=== PATIENT | male | born 2000 | race Native Hawaiian/Other Pacific Islander ===

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

== ENCOUNTER 2024-10-25 21:51 | Emergency (ER) | payer OTHER ==
[2024-10-25 21:56] VITALS: RESP 18; TEMP 98.2
[2024-10-25] MEDS: IBUPROFEN 400 MG TAB PO STA (22:31)
--- NOTE | 2024-10-25 23:23 | ED ---
General Adult HPI - General Chief complaint: Extremity Injury, Lower Stated complaint: Fall Time Seen by Provider: 10/25/24 22:00 Source: patient Mode of arrival: wheelchair - History of Present Illness Initial comments: 23-year-old male presenting with chief complaint of right knee pain. Patient had a slip and fall at work today. He has a small bruise over his kneecap. This is where the majority of the pain is. He is still has full range of motion but states that it is painful to move the knee. There is some mild swelling. No numbness or tingling. - Related Data Home Medications Medication Instructions Recorded Confirmed ARIPiprazole [Abilify] 2 mg PO HS 08/06/19 08/09/19 Sertraline [Zoloft] 50 mg PO HS 08/06/19 08/09/19 Allergies Allergy/AdvReac Type Severity Reaction Status Date / Time No Known Allergies Allergy Verified 10/25/24 21:56 Review of Systems ROS Statement: Those systems with pertinent positive or pertinent negative responses have been documented in the HPI. ROS Other: All systems not noted in ROS Statement are negative. 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 Absent: meningismus Respiratory exam: Absent: respiratory distress Cardiovascular Exam: Present: regular rate Right Knee exam: Present: full ROM, tenderness, swelling, ecchymosis Neurological exam: Present: alert, oriented X3 Psychiatric exam: Present: normal affect, normal mood Skin exam: Present: warm, dry Course Vital Signs 10/25/24 10/25/24 21:53 23:39 Temperature 98.2 F Pulse Rate 72 68 Respiratory 18 18 Rate Blood Pressure 121/72 126/70 O2 Sat by Pulse 98 99 Oximetry Medical Decision Making - Medical Decision Making Was pt. sent in by a medical professional or institution (, PA, DUCT LAYER SUPERVISOR, urgent care, hospital, or snf...) When possible be specific @ -No Did you speak to anyone other than the patient for history (EMS, parent, family, police, friend...)? What history was obtained from this source @ -Caregiver Did you review nursing and triage notes (agree or disagree)? Why? @ -I reviewed and agree with nursing and triage notes Were old charts reviewed (outside hosp., previous admission, EMS record, old EKG, old radiological studies, urgent care reports/EKG's, snf records)? Report findings @ -No old charts were reviewed Differential Diagnosis (chest pain, altered mental status, abdominal pain women, abdominal pain men, vaginal bleeding, weakness, fever, dyspnea, syncope, headache, dizziness, GI bleed, back pain, seizure, CVA, palpatations, mental health, musculoskeletal)? @ -Differential Musculoskeletal Muscular strain, contusion, ligament sprain, fracture, arthritis, septic arthritis, bursitis, cellulitis, muscle spasm, nerve compression, DVT, arterial occlusion, herpes zoster, electrolyte abnormality, tumor.... This is not meant to be in all inclusive list EKG interpreted by me (3pts min.). @ -As above X-rays interpreted by me (1pt min.). @ -X-ray shows anterior soft tissue swelling. No acute fracture or dislocation. CT interpreted by me (1pt min.). @ -None done U/S interpreted by me (1pt. min.). @ -None done What testing was considered but not performed or refused? (CT, X-rays, U/S, labs)? Why? @ -None What meds were considered but not given or refused? Why? @ -None Did you discuss the management of the patient with other professionals (professionals i.e. , PA, DUCT LAYER SUPERVISOR, lab, RT, psych nurse, director social welfare, community outreach director, teacher, banking officer, shoe parts caser)? Give summary @ -No Was smoking cessation discussed for >3mins.? @ -No Was critical care preformed (if so, how long)? @ -No Were there social determinants of health that impacted care today? How? (Homelessness, low income, unemployed, alcoholism, drug addiction, transportation, low edu. Level, literacy, decrease access to med. care, retirement, rehab)? @ -No Was there de-escalation of care discussed even if they declined (Discuss DNR or withdrawal of care, Hospice)? DNR status @ -No What co-morbidities impacted this encounter? (DM, HTN, Smoking, COPD, CAD, Cancer, CVA, ARF, Chemo, Hep., AIDS, mental health diagnosis, sleep apnea, morbid obesity)? @ -None Was patient admitted / discharged? Hospital course, mention meds given and route, prescriptions, significant lab abnormalities, going to OR and other pertinent info. @ -23-year-old male presenting with chief complaint of right knee injury after a fall at work today. He has some bruising and mild swelling. He has full range of motion. X-rays negative for fracture or dislocation. Patient and caregiver educated on today's findings and supportive management. Follow-up with PCP. Report back to ER with any new or worsening symptoms. Discussed return parameters and answered all questions. Patient and caregiver conveyed verbal understanding and agreed to the plan. I discussed this case in detail with my attending Dr. Hong Undiagnosed new problem with uncertain prognosis? @ -No Drug Therapy requiring intensive monitoring for toxicity (Heparin, Nitro, Insulin, Cardizem)? @ -No Were any procedures done? @ -No Diagnosis/symptom? @ -Knee injury Acute, or Chronic, or Acute on Chronic? @ -Acute Uncomplicated (without systemic symptoms) or Complicated (systemic symptoms)? @ -Uncomplicated Side effects of treatment? @ -No Exacerbation, Progression, or Severe Exacerbation? @ -No Poses a threat to life or bodily function? How? (Chest pain, [place], [place], pneumonia, PE, COPD, DKA, ARF, appy, cholecystitis, CVA, Diverticulitis, Homicidal, Suicidal, threat to staff... and all critical care pts) @ -Low likelihood Disposition Clinical Impression: Knee injury Disposition: HOME SELF-CARE Condition: Good Instructions (If sedation given, give patient instructions): Knee Pain (ED) Additional Instructions: Follow-up with PCP, suggestions provided. Report back to ER with any new or worsening symptoms. Take Motrin and Tylenol as needed for pain control. Rest, ice, compress, elevate the knee to help with pain and swelling. Is patient prescribed a controlled substance at d/c from ED?: No Referrals: None,Stated [Primary Care Provider] - 1-2 days Forms: Area PCPs Time of Disposition: 23:23
[2024-10-25 23:41] VITALS: BP 126/70; PULSE 68
--- NOTE | 2024-10-25 23:53 | XR ---
EXAM: XR Right Knee, 3 Views CLINICAL HISTORY: ITS.REASON XR Reason: pain,injury TECHNIQUE: Three views of the right knee. COMPARISON: No previous studies. FINDINGS: Bones/joints: Unremarkable. Normal anatomic alignment. No acute fracture, dislocation, or destructive process. Soft tissues: Soft tissue swelling noted anteriorly. IMPRESSION: 1. Anterior soft tissue swelling. 2. No acute fracture or dislocation. 3. MRI imaging may provide additional information as deemed necessary.
== END 2024-10-25 23:41 | disposition home or self-care (01) ==
LOC: EEVIPCON 21:51 → EC 21:51
DX: S80.01XA Contusion of right knee, initial encounter (principal); W01.0XXA Fall on same level from slipping, tripping and stumbling without subsequent striking against object, initial encounter; Y99.0 Civilian activity done for income or pay
CPT/HCPCS: 99283

== ENCOUNTER 2024-12-21 16:16 | Emergency (ER) | payer OTHER ==
[2024-12-21 16:43] VITALS: BP 106/68; PULSE 65; RESP 18; TEMP 98.3
--- NOTE | 2024-12-21 17:05 | ED ---
ENT HPI - General Chief complaint: Dental/Oral Stated complaint: facial infection Time Seen by Provider: 12/21/24 16:27 Source: patient, RN notes reviewed Mode of arrival: ambulatory Limitations: no limitations - History of Present Illness Initial comments: This is a 24-year-old male with history of hydrocephaly presenting with facial edema and pain x 2 days. Patient states he began having swelling of his upper lip with associated pain. Endorses history of poor dental care. Denies use of any new prescription medication, difficulty breathing or airway swelling. Endorses use of Motrin with minimal relief. Denies fever, chills, nasal congestion, sore throat, cough, chest pain, dyspnea, abdominal pain, N/V/D. MD complaint: tooth pain Onset/Timin -: days(s) Location: tooth # 1 - TTP, periapical abscess Severity: severe Consistency: constant Worsens with: eating Context- Dental: poor dental care Associated Symptoms: gum swelling, toothache - Related Data Home Medications Medication Instructions Recorded Confirmed ARIPiprazole [Abilify] 2 mg PO HS 08/06/19 08/09/19 Sertraline [Zoloft] 50 mg PO HS 08/06/19 08/09/19 Previous Rx's Medication Instructions Recorded Amoxic-Pot Clav 875-125Mg 1 tab PO Q12HR #20 tab 12/21/24 [Augmentin 875-125] Allergies Allergy/AdvReac Type Severity Reaction Status Date / Time No Known Allergies Allergy Verified 10/25/24 21:56 Review of Systems ROS Statement: Those systems with pertinent positive or pertinent negative responses have been documented in the HPI. ROS Other: All systems not noted in ROS Statement are negative. 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 Absent: scleral icterus, conjunctival injection, periorbital swelling ENT exam: Present: mucous membranes dry, other (Significant edema of upper lip and associated right side TTP near frontal incisor. Negative overlying erythema, discharge, open wound. Small. No abscess with associated tenderness noted superiorly to right frontal incisor along gingiva.) Neck exam: Present: normal inspection. Absent: tenderness, meningismus, lymphadenopathy Respiratory exam: Present: normal lung sounds bilaterally. Absent: respiratory distress, wheezes, rales, rhonchi, stridor Cardiovascular Exam: Present: regular rate, normal rhythm, normal heart sounds. Absent: systolic murmur, diastolic murmur, rubs, gallop, clicks GI/Abdominal exam: Present: soft, normal bowel sounds. Absent: distended, tenderness, guarding, rebound, rigid Extremities exam: Present: normal inspection, full ROM, normal capillary refill. Absent: tenderness, pedal edema, joint swelling, calf tenderness Back exam: Present: normal inspection Neurological exam: Present: alert, oriented X3, CN II-XII intact Psychiatric exam: Present: normal affect, normal mood Skin exam: Present: warm, dry, intact, normal color. Absent: rash Course Vital Signs 12/21/24 16:40 Temperature 98.3 F Pulse Rate 65 Respiratory 18 Rate Blood Pressure 106/68 O2 Sat by Pulse 98 Oximetry Medical Decision Making - Medical Decision Making Was pt. sent in by a medical professional or institution (, [facility], HOME PARAPROFESSIONAL, urgent care, hospital, or chcf...) When possible be specific @ -No Did you speak to anyone other than the patient for history (EMS, parent, family, police, friend...)? What history was obtained from this source @ -No Did you review nursing and triage notes (agree or disagree)? Why? @ -I reviewed and agree with nursing and triage notes Were old charts reviewed (outside hosp., previous admission, EMS record, old EKG, old radiological studies, urgent care reports/EKG's, chcf records)? Report findings @ -No old charts were reviewed Differential Diagnosis (chest pain, altered mental status, abdominal pain women, abdominal pain men, vaginal bleeding, weakness, fever, dyspnea, syncope, headache, dizziness, GI bleed, back pain, seizure, CVA, palpatations, mental health, musculoskeletal)? @ -Periapical abscess, ANUG, dental carry, angioedema, gingivitis, cellulitis, sinusitis, this is not an exhaustive list EKG interpreted by me (3pts min.). @ -Not done X-rays interpreted by me (1pt min.). @ -None done CT interpreted by me (1pt min.). @ -None done U/S interpreted by me (1pt. min.). @ -None done What testing was considered but not performed or refused? (CT, X-rays, U/S, labs)? Why? @ -None What meds were considered but not given or refused? Why? @ -Patient declined all pain medication offered including Toradol, Motrin and supraperiosteal dental block. Patient also declined needle aspiration or I&D of periapical abscess Did you discuss the management of the patient with other professionals (professionals i.e. , PA, HOME PARAPROFESSIONAL, lab, RT, psych nurse, social media marketing manager, industrial controls technician, teacher, state wildlife officer, disease case manager rn)? Give summary @ -No Was smoking cessation discussed for >3mins.? @ -No Was critical care preformed (if so, how long)? @ -No Were there social determinants of health that impacted care today? How? (Homele ssness, low income, unemployed, alcoholism, drug addiction, transportation, low edu. Level, literacy, decrease access to med. care, chcf, rehab)? @ -No Was there de-escalation of care discussed even if they declined (Discuss DNR or withdrawal of care, Hospice)? DNR status @ -No What co-morbidities impacted this encounter? (DM, HTN, Smoking, COPD, CAD, Cancer, CVA, ARF, Chemo, Hep., AIDS, mental health diagnosis, sleep apnea, morbid obesity)? @ -None Was patient admitted / discharged? Hospital course, mention meds given and route, prescriptions, significant lab abnormalities, going to OR and other pertinent info. @ -Basic lab work shows leukocytosis 12.1 with left shift and otherwise unremarkable including negative lactic acid. Patient declined all pain medication offered including Toradol, Motrin and supraperiosteal dental block. Patient also declined needle aspiration or I&D of periapical abscess provided initial dose of p.o. Augmentin with remaining Augmentin regimen sent to patient's pharmacy. Advised alternate Tylenol/Motrin every 4 hours for pain and swish with warm salt water. Advised follow-up with dentist following resolution of infection. Discussed patient with Dr. Hong. Undiagnosed new problem with uncertain prognosis? @ -No Drug Therapy requiring intensive monitoring for toxicity (Heparin, Nitro, Insulin, Cardizem)? @ -No Were any procedures done? @ -No Diagnosis/symptom? @ -Periapical abscess with facial edema Acute, or Chronic, or Acute on Chronic? @ -Acute Uncomplicated (without systemic symptoms) or Complicated (systemic symptoms)? @ -Uncomplicated Side effects of treatment? @ -No Exacerbation, Progression, or Severe Exacerbation? @ -No Poses a threat to life or bodily function? How? (Chest pain, USA, [place], pneumonia, PE, COPD, DKA, ARF, appy, cholecystitis, CVA, Diverticulitis, Homicidal, Suicidal, threat to staff... and all critical care pts) @ -No - Lab Data Result diagrams: 12/21/24 16:47 12/21/24 16:47 Lab Results 12/21/24 12/21/24 12/21/24 Range/Units 16:47 16:47 16:47 WBC 12.1 H (3.8-10.6) k/uL RBC 6.28 H (4.30-5.90) m/uL Hgb 15.4 (13.0-17.5) gm/dL Hct 46.7 (39.0-53.0) % MCV 74.4 L (80.0-100.0) fL MCH 24.5 L (25.0-35.0) pg MCHC 33.0 (31.0-37.0) g/dL RDW 13.5 (11.5-15.5) % Plt Count 252 (150-450) k/uL MPV 8.8 Neutrophils % 78 % Lymphocytes % 13 % Monocytes % 6 % Eosinophils % 1 % Basophils % 0 % Neutrophils # 9.4 H (1.3-7.7) k/uL Lymphocytes # 1.6 (1.0-4.8) k/uL Monocytes # 0.8 (0-1.0) k/uL Eosinophils # 0.1 (0-0.7) k/uL Basophils # 0.0 (0-0.2) k/uL Microcytosis Slight Sodium 140 (137-145) mmol/L Potassium 4.2 (3.5-5.1) mmol/L Chloride 98 (98-107) mmol/L Carbon Dioxide 30 (22-30) mmol/L Anion Gap 12 mmol/L BUN 13 (9-20) mg/dL Creatinine 0.76 (0.66-1.25) mg/dL Est GFR (CKD-EPI)AfAm >90 (>60 ml/min/1.73 sqM) Est GFR (CKD-EPI)NonAf >90 (>60 ml/min/1.73 sqM) Glucose 90 (74-99) mg/dL Plasma Lactic Acid Rayshawn 1.2 (0.7-2.0) mmol/L Calcium 9.8 (8.4-10.2) mg/dL Total Bilirubin 1.3 (0.2-1.3) mg/dL AST 27 (17-59) U/L ALT 17 (4-49) U/L Alkaline Phosphatase 65 (38-126) U/L Total Protein 8.2 (6.3-8.2) g/dL Albumin 4.7 (3.5-5.0) g/dL Disposition Clinical Impression: Periapical abscess Disposition: HOME SELF-CARE Instructions (If sedation given, give patient instructions): Dental Abscess (ED) Additional Instructions: Follow-up with dentist following resolution of infection. Prescriptions: Amoxic-Pot Clav 875-125Mg [Augmentin 875-125] 1 tab PO Q12HR #20 tab Is patient prescribed a controlled substance at d/c from ED?: No Referrals: None,Stated [Primary Care Provider] - 1-2 days Floresita Moon DDS [STAFF PHYSICIAN] - 1-2 days Time of Disposition: 17:55
[2024-12-21] MEDS: AMOXIC-POT CLAV 875-125MG 1 EACH TAB PO STA (18:09)
[2024-12-21 18:18] LABS: Basophils % (A) 0 %; Eosinophils # (A) 0.1 k/uL (0-0.7); Eosinophils % (A) 1 %; HCT 46.7 % (39.0-53.0); HGB 15.4 gm/dL (13.0-17.5); Lymphocytes # (A) 1.6 k/uL (1.0-4.8); Lymphocytes % (A) 13 %; MCH 24.5 pg (25.0-35.0); MCV 74.4 fL (80.0-100.0); Mean Platelet Volume 8.8; Microcytosis Slight; Monocytes # (A) 0.8 k/uL (0-1.0); Monocytes % (A) 6 %; Neutrophils # (A) 9.4 k/uL (1.3-7.7); Neutrophils % (A) 78 %; Platelet Count 252 k/uL (150-450); RBC 6.28 m/uL (4.30-5.90); RDW 13.5 % (11.5-15.5); WBC 12.1 k/uL (3.8-10.6)
[2024-12-21 18:29] LABS: ALT 17 U/L (4-49); AST 27 U/L (17-59); African American GFR (CKD) >90 (>60 ml/min/1.73 sqM); Albumin 4.7 g/dL (3.5-5.0); Alkaline Phosphatase 65 U/L (38-126); Anion Gap 12 mmol/L; Blood Urea Nitrogen 13 mg/dL (9-20); Calcium 9.8 mg/dL (8.4-10.2); Carbon Dioxide 30 mmol/L (22-30); Chloride 98 mmol/L (98-107); Glucose 90 mg/dL (74-99); Non-African American GFR(CKD) >90 (>60 ml/min/1.73 sqM); Potassium 4.2 mmol/L (3.5-5.1); Sodium 140 mmol/L (137-145); Total Bilirubin 1.3 mg/dL (0.2-1.3); Total Protein 8.2 g/dL (6.3-8.2)
== END 2024-12-21 18:30 | disposition home or self-care (01) ==
LOC: EC 16:16
DX: K04.7 Periapical abscess without sinus (principal)
CPT/HCPCS: 36415; 80053; 83605; 85025; 99283

== ENCOUNTER 2025-04-07 16:04 | Emergency (ER) | payer OTHER ==
[2025-04-07 16:15] VITALS: RESP 18
--- NOTE | 2025-04-07 17:09 | ED ---
Upper Extremity HPI - General Chief Complaint: Extremity Injury, Upper Stated Complaint: Had a fall. Hurt his left arm Time Seen by Provider: 04/07/25 16:18 Source: patient, RN notes reviewed Mode of arrival: ambulatory Limitations: no limitations - History of Present Illness Initial Comments: 24-year-old male presenting to the emergency department with complaints of left elbow pain. Patient states that he was walking quickly to go to the [facility] to withdraw from any when he fell landing on his left elbow. Patient denies hitting his head or loss conscious at the time of the fall. Patient has full range of motion of the elbow however states that this does elicit mild pain. Denies paresthesias. He states his last tetanus vaccination was within the last 5 years. No other acute complaints at this time. - Related Data Home Medications Medication Instructions Recorded Confirmed No Known Home Medications 04/07/25 04/07/25 Allergies Allergy/AdvReac Type Severity Reaction Status Date / Time No Known Allergies Allergy Verified 04/07/25 17:19 Review of Systems ROS Statement: Those systems with pertinent positive or pertinent negative responses have been documented in the HPI. ROS Other: All systems not noted in ROS Statement are negative. 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 Absent: respiratory distress, wheezes, rales, rhonchi, stridor Cardiovascular Exam: Present: regular rate, normal rhythm, normal heart sounds. Absent: systolic murmur, diastolic murmur, rubs, gallop, clicks GI/Abdominal exam: Present: soft, normal bowel sounds. Absent: distended, tenderness, guarding, rebound, rigid Left Elbow exam: Present: full ROM, tenderness, swelling, abrasion. Absent: deformity, crepitus, dislocation Neuro motor exam: Present: wrist extension intact, thumb opposition intact Back exam: Present: normal inspection Course Vital Signs 04/07/25 16:12 Temperature 98.4 F Pulse Rate 97 Respiratory 18 Rate Blood Pressure 127/76 O2 Sat by Pulse 97 Oximetry Medical Decision Making - Medical Decision Making Was pt. sent in by a medical professional or institution ([facility], RESPIRATORY CLINICIAN, urgent care, hospital, or group home...) When possible be specific @ -No Did you speak to anyone other than the patient for history (EMS, parent, family, police, friend...)? What history was obtained from this source @ -No Did you review nursing and triage notes (agree or disagree)? Why? @ -I reviewed and agree with nursing and triage notes Were old charts reviewed (outside hosp., previous admission, EMS record, old EKG, old radiological studies, urgent care reports/EKG's, group home records)? Report findings @ -No old charts were reviewed Differential Diagnosis (chest pain, altered mental status, abdominal pain women, abdominal pain men, vaginal bleeding, weakness, fever, dyspnea, syncope, headache, dizziness, GI bleed, back pain, seizure, CVA, palpatations, mental health, musculoskeletal)? @ -Differential Musculoskeletal Muscular strain, contusion, ligament sprain, fracture, arthritis, septic arthritis, bursitis, cellulitis, muscle spasm, nerve compression, DVT, arterial occlusion, herpes zoster, electrolyte abnormality, tumor.... This is not meant to be in all inclusive list EKG interpreted by me (3pts min.). @ -None X-rays interpreted by me (1pt min.). @ -X-ray of the left elbow no evidence of acute osseous abnormality. CT interpreted by me (1pt min.). @ -None done U/S interpreted by me (1pt. min.). @ -None done What testing was considered but not performed or refused? (CT, X-rays, U/S, labs)? Why? @ -None What meds were considered but not given or refused? Why? @ -None Did you discuss the management of the patient with other professionals (professionals i.e. [facility], RESPIRATORY CLINICIAN, lab, RT, psych nurse, social group worker, sewage screen operator, teacher, nuclear officer, machine adjuster leader case trim)? Give summary @ -No Was smoking cessation discussed for >3mins.? @ -No Was critical care preformed (if so, how long)? @ -No Were there social determinants of health that impacted care today? How? (Homelessness, low income, unemployed, alcoholism, drug addiction, transportation, low edu. Level, literacy, decrease access to med. care, intermediate, rehab)? @ -No Was there de-escalation of care discussed even if they declined (Discuss DNR or withdrawal of care, Hospice)? DNR status @ -No What co-morbidities impacted this encounter? (DM, HTN, Smoking, COPD, CAD, Cancer, CVA, ARF, Chemo, Hep., AIDS, mental health diagnosis, sleep apnea, morbid obesity)? @ -None Was patient admitted / discharged? Hospital course, mention meds given and route, prescriptions, significant lab abnormalities, going to OR and other pertinent info. @ -Discharge. 24 year old male presenting with left elbow pain after a fall. There is a noted 2 cm skin abrasion with no evidence of bleeding. Patient is full range of motion of the elbow. Was offered pain medication and was declined. X-ray is unremarkable. Area is covered with bandage and patient is instructed to continue supportive treatment at home. Case discussed with Dr. Ramos Undiagnosed new problem with uncertain prognosis? @ -No Drug Therapy requiring intensive monitoring for toxicity (Heparin, Nitro, Insulin, Cardizem)? @ -No Were any procedures done? @ -No Diagnosis/symptom? @ -Fall, elbow sprain, skin abrasion Acute, or Chronic, or Acute on Chronic? @ -Acute Uncomplicated (without systemic symptoms) or Complicated (systemic symptoms)? @ -Uncomplicated Side effects of treatment? @ -No Exacerbation, Progression, or Severe Exacerbation? @ -No Poses a threat to life or bodily function? How? (Chest pain, USA, OR, pneumonia, PE, COPD, DKA, ARF, appy, cholecystitis, CVA, Diverticulitis, Homicidal, Suicidal, threat to staff... and all critical care pts) @ -No Disposition Clinical Impression: Elbow abrasion Disposition: HOME SELF-CARE Condition: Good Instructions (If sedation given, give patient instructions): Elbow Sprain (ED) Additional Instructions: Please return to the Emergency Department if symptoms worsen or any other concerns. Is patient prescribed a controlled substance at d/c from ED?: No Referrals: None,Stated [REFERRING] - 1-2 days Time of Disposition: 17:45
--- NOTE | 2025-04-07 17:36 | XR ---
EXAMINATION TYPE: XR elbow complete LT DATE OF EXAM: 04/07/2025 5:26 PM COMPARISON: Prior elbow radiograph 10/09/2020. CLINICAL INDICATION: Male, 24 years old with history of fall; PHH, pain TECHNIQUE: XR elbow complete LT; elbow was examined in AP, lateral, and oblique projections. FINDINGS: Pre-olecranon soft tissue swelling/edema. No unexpected radiopaque foreign body. No acute f racture or dislocation. No sizable joint effusion. IMPRESSION: Pre-olecranon and soft tissue edema without acute fracture or dislocation. No sizable elbow joint eff usion. [facility], , 04/07/2025 5:34 PM
[2025-04-07 17:59] VITALS: BP 125/82; PULSE 90; TEMP 98.2
== END 2025-04-07 17:59 | disposition home or self-care (01) ==
LOC: EC 16:04
DX: S53.402A Unspecified sprain of left elbow, initial encounter (principal); W19.XXXA Unspecified fall, initial encounter; Y93.01 Activity, walking, marching and hiking
CPT/HCPCS: 99283